=== PATIENT | male | born 1995 | race Caucasian/White ===

== ENCOUNTER 2021-01-27 17:12 | Emergency (ER) | payer OTHER, SELFPAY ==
[2021-01-27 17:33] VITALS: BP 125/66; PULSE 78; RESP 14; TEMP 36.8; O2SAT 100
[2021-01-27 17:47] LABS: Basophils Absolute Auto 0.1 K/mm3 (0.0-0.1); Basophils Percent Auto 0.7 % (0.2-1.2); Eosinophils Absolute Auto 0.1 K/mm3 (0-0.3); Eosinophils Percent Auto 1.3 % (0-4.4); Hematocrit 43.8 % (42.0-52.0); Hemoglobin 14.9 g/dL (14.0-18.0); Immature Granulocyte Absolute 0.02 K/mm3 (0.00-0.031); Immature Granulocyte Percent A 0.2 % (0-0.5); Lymphocytes Absolute Auto 2.12 K/mm3 (0.9-3.2); Lymphocytes Percent Auto 25.4 % (18.3-44.2); Mean Corpuscular Hemoglobin 30.3 pg (26-34); Mean Corpuscular Volume 89.2 fl (80-100); Mean Platelet Volume 10.5 fl (7.4-10.4); Monocytes Absolute Auto 0.8 K/mm3 (0.1-0.6); Monocytes Percent Auto 9.6 % (2.6-8.5); Neutrophils Absolute Auto 5.2 K/mm3 (1.3-6.7); Neutrophils Percent Auto 62.8 % (45.5-73.1); Platelet Count Result 259 k/mm3 (150-375); Red Blood Count 4.91 M/mm3 (4.6-6.20); Red Cell Distribution Width 12.7 % (11.5-14.5); White Blood Count 8.4 K/mm3 (4.5-10.0)
[2021-01-27 17:57] LABS: INR 0.9
[2021-01-27 17:58] LABS: Partial Thromboplastin Time 28.2 SECONDS (22.3-36.8)
[2021-01-27 18:00] LABS: Alanine Aminotransferase 163 U/L (4-50); Albumin Level 4.6 g/dL (3.5-5.1); Alkaline Phosphatase 100 U/L (38-126); Anion Gap 6 mmol/L (8-16); Aspartate Amino Transferase 78 U/L (17-59); Bilirubin,Total 0.3 mg/dL (0.2-1.3); Blood Urea Nitrogen 15 mg/dL (9-20); Calcium 9.4 mg/dL (8.4-10.2); Carbon Dioxide 29 mmol/L (22-30); Chloride 106 mmol/L (98-107); Estimated CRCL calculation 131 ml/min; Estimated Glomerular Filt Rate > 60; Glucose 96 mg/dL (75-110); Potassium 4.1 mmol/L (3.4-5.0); Sodium 141 mmol/L (137-145)
--- NOTE | 2021-01-27 18:30 | PC.NURSE ---
In no acute distress, using cell phone; skin signs and breathing wnl. Updated labs non-critical
--- NOTE | 2021-01-27 19:53 | ED.GENADULT ---
HPI - General Adult General Chief complaint: Abdominal Pain Stated complaint: abd pain, rectal bleeding Time Seen by Provider: 01/27/21 19:22 Source: patient Mode of arrival: ambulatory Limitations: no limitations History of Present Illness HPI narrative: Patient is a 25-year-old male who presents to emergency department for evaluation of intermittent abdominal pain and rectal bleeding has been present for months patient has history of hemorrhoids notes that he over the last week he has had increasing pain to the left lower quadrant with bright red blood in the toilet today on arrival to emergency department patient resting comfortably in the room noting minimal discomfort of the abdomen denies any fever chills nausea vomiting and notes that he is new to the area and does not have established physicians Related Data Allergies Allergy/AdvReac Type Severity Reaction Status Date / Time No Known Allergies Allergy Verified 01/27/21 20:18 Review of Systems Review of Systems: All systems reviewed & are unremarkable except as noted in HPI and below PMFSH Social History Social History (Updated 01/27/21 @ 20:14 by Alejo Lauren PA-C) Smoking status: Never smoker Exam Narrative: Exam Narrative: GENERAL: Well-appearing, well-nourished, and in no acute distress. HEAD: Normocephalic, atraumatic. EYES: PERRLA and EOMI. ENT: Nares clear, no rhinorrhea or epistaxis. Mucous membranes moist. CHEST: Clear to auscultation. No respiratory distress. No wheezes rales or rhonchi HEART: Regular rate and rhythm. No murmur heard. Normal peripheral pulses. ABDOMEN: Soft, nontender, nondistended EXTREMITIES: Normal range of motion. No edema. SKIN: Warm, dry, no rash. NEURO: No focal deficits. Alert and oriented x3. PSYCH: Normal mood and affect. Course Course Emergency Course: Patient in the room in no distress aware of case findings treatment plan diagnosis Vital Signs Vital signs: Vital Signs Temperature 98.2 F 01/27/21 17:33 Pulse Rate 78 01/27/21 17:33 Respiratory Rate 14 01/27/21 17:33 Blood Pressure 125/66 01/27/21 17:33 Pulse Oximetry 100 01/27/21 17:33 Temperature 98.2 F 01/27/21 17:33 Pulse Rate 78 01/27/21 17:33 Respiratory Rate 14 01/27/21 17:33 Blood Pressure 125/66 01/27/21 17:33 Pulse Oximetry 100 01/27/21 17:33 Medical Decision Making MDM Narrative Medical decision making narrative: Patient with rectal bleeding nontender abdominal exam felt appropriate for outpatient reevaluation no high risk changes in the blood work or imaging ABCs vital signs intact and stable provided with reasons to return will be given primary care and GI follow-up Vital Signs Vital Signs: Vital Signs Temperature 98.2 F 01/27/21 17:33 Pulse Rate 78 01/27/21 17:33 Respiratory Rate 14 01/27/21 17:33 Blood Pressure 125/66 01/27/21 17:33 Pulse Oximetry 100 01/27/21 17:33 Temperature 98.2 F 01/27/21 17:33 Pulse Rate 78 01/27/21 17:33 Respiratory Rate 14 01/27/21 17:33 Blood Pressure 125/66 01/27/21 17:33 Pulse Oximetry 100 01/27/21 17:33 Lab Data Result diagrams: 01/27/21 17:39 01/27/21 17:39 Labs: Lab Results 01/27/21 01/27/21 01/27/21 Range/Units 17:39 17:39 17:39 WBC 8.4 (4.5-10.0) K/mm3 RBC 4.91 (4.6-6.20) M/mm3 Hgb 14.9 (14.0-18.0) g/dL Hct 43.8 (42.0-52.0) % MCV 89.2 (80-100) fl MCH 30.3 (26-34) pg MCHC 34.0 (32-36) g/dl RDW 12.7 (11.5-14.5) % Plt Count 259 (150-375) k/mm3 MPV 10.5 H (7.4-10.4) fl Immature Gran % (Auto) 0.2 (0-0.5) % Neut % (Auto) 62.8 (45.5-73.1) % Lymph % (Auto) 25.4 (18.3-44.2) % Walker % (Auto) 9.6 H (2.6-8.5) % Eos % (Auto) 1.3 (0-4.4) % Baso % (Auto) 0.7 (0.2-1.2) % Lymph # (Auto) 2.12 (0.9-3.2) K/mm3 Walker # (Auto) 0.8 H (0.1-0.6) K/mm3 Eos # (Auto) 0.1 (0-0.3) K/mm3 Baso # (Auto) 0.1 (0.0-0.1) K
[2021-01-27 20:27] VITALS: BP 132/74; PULSE 73; RESP 16; O2SAT 100
== END 2021-01-27 20:28 | disposition home or self-care (01) ==
PROVIDERS: Emergency Provider Emergency Medicine
DX: R10.9 Unspecified abdominal pain (principal); K62.5 Hemorrhage of anus and rectum
CPT/HCPCS: 36415; 80053; 85025; 85610; 85730; 86850; 86900; 86901; 99283

== ENCOUNTER 2021-04-23 16:25 | Outpatient (CLI) | payer OTHER, SELFPAY ==
--- NOTE | ~2021-04-23 | CT_ITS ---
EXAMINATION: CT abdomen pelvis w con DATE: 04/23/2021 16:49 INDICATION: Left lower quadrant pain for one year TECHNIQUE: Computed tomography (CT) of the abdomen and pelvis was performed with 100 cc Omnipaque 350 intravenous contrast. The dose-length product was 1120.26 mGy-cm. Automated exposure control and ite rative reconstruction technique were employed. COMPARISON: None. FINDINGS: Lung bases are unremarkable. Heart size normal. No significant pleural or pericardial effus ion. No significant vascular abnormality. No lymphadenopathy. Normal appendix. The liver, spleen, pancreas, adrenal glands and kidneys are unremarkable. No hydronephrosis. Nonobstr uctive bowel gas pattern. No evidence for diverticulitis or appendicitis. No free air or free fluid. Bladder is unremarkable. Small fat-containing umbilical hernia. No significant bone or joint abnormal ity. IMPRESSION: 1. No acute abdominal abnormality. No findings to account for patient's symptoms. Reviewed, dictated and finalized at location A. IMPRESSION: 1. No acute abdominal abnormality. No findings to account for patient's symptom s.
== END 2021-04-23 16:26 | disposition home or self-care (01) ==
DX: R10.32 Left lower quadrant pain (principal)
CPT/HCPCS: 74177; Q9967

== ENCOUNTER 2024-04-25 01:37 | Day surgery (SDC) | payer OTHER, SELFPAY ==
[2024-04-18 15:06] VITALS: BMI 29.9
[2024-04-25 11:21] VITALS: BP 112/75; PULSE 64; RESP 16; TEMP 36.7; O2SAT 100
--- NOTE | 2024-04-25 11:23 | WPDANESEPPF ---
Anes - Initial Pre Proc Eval Procedure: Operation Date: 04/25/24 14:30 Proposed Procedures p Colonoscopy - Jas Hathaway MD s Anoscopy - Jas Hathaway MD Date/Time: 04/25/24 11:23 Surgeon: Jas Hathaway MD Pre Op Diagnosis: acute anal fissure, melena, left lower quadrant pa Patient Data Age: 29 Gender: M Height: 1.83 m Weight: 97.5 kg Last Vital Signs Temp 98.0 F 04/25/24 11:21 Pulse 64 04/25/24 11:21 Resp 16 04/25/24 11:21 BP 112/75 04/25/24 11:21 Pulse Ox 100 04/25/24 11:21 O2 Del Method Room Air 04/25/24 11:21 Allergies Allergy/AdvReac Type Severity Reaction Status Date / Time cefprozil [From Cefzil] Allergy Mild Rash Verified 04/25/24 11:19 Home Medications Medication Instructions Recorded Confirmed Type fluticasone propionate 50 1 spray intranasal DAILY 04/12/24 04/25/24 History mcg/actuation nasal spray,suspension (Flonase Allergy Relief) hydrocortisone 2.5 % topical cream 1 applic RECTAL BID #30 grams 04/12/24 04/25/24 Rx with perineal applicator nitroglycerin 0.4 % (w/w) rectal 1 inch RECTAL BID #30 grams 04/12/24 04/25/24 Rx ointment (Rectiv) Patient hx anesthesia problems: none Family hx anesthesia problems: none Results Review: All pre-operative results and documents have been reviewed as part of the pre-operative evaluation. [facility] Social History Social History (Updated 01/27/21 @ 20:14 by Alejo Lauren, PA-C) Smoking status: Never smoker Alcohol intake: current Substance use: never Substance use type: does not use Living arrangements: with family Spiritual care concerns: No Anes - Eval Final PreProcedure Day of Procedure 04/25/24 11:23 Patient weight: overweight Heart: regular rate and rhythm Lungs: clear to auscultation Airway: Mallampati scale class II Neurological: alert and oriented Last oral intake: >/= 8 hours ASA classification: II Emergent: no Anesthetic plan: proceed Anesthesia type and monitoring: general GIVS and standard monitoring Results Review: All pre-operative results and documents have been reviewed as part of the pre-operative evaluation. Informed Consent: The patient's anesthetic plan and its attendant risks and benefits were discussed with the patient/family/POA. Questions were solicited and answers provided to the satisfaction of the patient/family/POA.
[2024-04-25] MEDS: LACTATED RINGERS 1,000 ML 150 ML IV CONT (11:28)
--- NOTE | 2024-04-25 12:07 | WPDHPUPDATE1 ---
History and Physical Update Update Date/Time: 04/25/24 12:07 History and Physical has been reviewed, including an updated exam of the patient. There are NO changes in the patient's condition. Risks, benefits, and alternatives have been discussed and questions answered. Patient agrees to proceed with procedure.
[2024-04-25 12:28] VITALS: BP 99/58; PULSE 69; RESP 22; O2SAT 100
[2024-04-25 12:38] VITALS: BP 91/56; PULSE 65; RESP 19; O2SAT 96
[2024-04-25 12:48] VITALS: BP 119/82; PULSE 75; RESP 18; O2SAT 100
== END 2024-04-25 12:57 | disposition home or self-care (01) ==
PROVIDERS: Referring Provider Nurse Practitioner; Visit Provider Internal Medicine Gastroenterology
PROC: 0DJD8ZZ Inspection of Lower Intestinal Tract, Via Natural or Artificial Opening Endoscopic (ICD-10-PCS; CPT 45378; principal; 2024-04-25 14:30)
DX: K60.1 Chronic anal fissure (principal); K64.8 Other hemorrhoids
CPT/HCPCS: 45378; J2704; J7120